=== PATIENT | female | born 1995 | race Caucasian/White ===

== ENCOUNTER 2017-02-03 12:52 | Emergency (ER) | payer OTHER ==
[~2017-02-03] VITALS: Ht 157.5 cm; Wt 52.1 kg
[~2017-02-03 12:52] MED LIST: CLEOCIN300 MG PO; GARAMYCIN5 M1 LEFT EYE; JUNEL FE 1/21 TABLET PO; KEPPRA750 MG PO; MOTRIN600 MG PO; MUCINEX DM ER1 EACH PO; NAPROSYN500 MG PO; PEPCID20 MG PO; PHENERGAN-CODE120 ML PO; PREDNISONE20 MG PO; PROAIR HFA8.5 GM IH; TAMIFLU75 MG PO; TRAMADOL HCL50 MG PO; VENTOLIN HFA18 GM IH; ZOFRAN4 MG PO
[2017-02-03] MEDS ORDERED: AMOXICILLIN500 M1 PO (14:10)
[2017-02-03] MEDS ORDERED: MOTRIN600 MG PO (14:10)
[2017-02-03] MEDS ORDERED: TRAMADOL HCL50 MG PO (14:10)
[2017-02-03 14:52] VITALS: BP 144/84
== END 2017-02-03 14:56 | disposition home or self-care (01) ==
LOC: EME 12:52 → RME 12:52
DX: K08.89 Other specified disorders of teeth and supporting structures (principal)
CPT/HCPCS: 99281; 99284; J1885

== ENCOUNTER 2017-03-08 13:08 | Emergency (ER) | payer OTHER ==
[~2017-03-08] VITALS: Ht 157.5 cm; Wt 51.7 kg
[~2017-03-08 13:08] MED LIST changes: +AMOXICILLIN500 M1 PO
[2017-03-08 15:33] LABS: ADD MIUA? YES; BILIRUBIN NEGATIVE; BLOOD SMALL; COLOR YELLOW ((YELLOW)); GLUCOSE (STRIP) NEGATIVE; KETONES 5; LEUKOCYTES MODERATE; NITRITE POSITIVE; PROTEIN (STRIP) NEGATIVE; SPECIFIC GRAVITY 1.024 (1.000-1.030); UROBILINOGEN 0.2 MG/DL (0.2-1.0)
[2017-03-08 15:39] LABS: BACTERIA 3+ /HPF; EPITHELIAL CELLS RARE /HPF; MUCUS 1+ /LPF; RED BLOOD CELLS 0-5 /HPF (0-5); WHITE BLOOD CELLS 20-30 /HPF (0-5)
[2017-03-08 15:47] LABS: HEMATOCRIT 39.7 % (36.0-46.0); MCH 28.1 PG (29.0-34.0); MCV 85.2 FL (83-99); MEAN PLAT.VOLUME 10.2 uM^3 (9.5-12.4); PLATELET COUNT 352 K/uL (156-360); RBC DIS.WIDTH-CV 13.5 % (11.8-14.6); RBC DIS.WIDTH-SD 42.1 % (39-53); RED BLOOD COUNT 4.66 M/uL (3.80-5.20); WHITE BLOOD COUNT 11.3 K/uL (4.1-10.2)
[2017-03-08 15:57] LABS: CHLORIDE 101 mEq/L (99-109); POTASSIUM 3.7 mEq/L (3.7-5.4); SODIUM 137 mEq/L (136-147)
[2017-03-08 15:59] LABS: GLUCOSE 86 mg/dL (70-99)
[2017-03-08 16:01] LABS: ANION GAP 10 MEQ/L (2-14); TOTAL BILIRUBIN 0.4 mg/dL (0.0-1.0)
[2017-03-08 16:03] LABS: ALKALINE PHOSPHATASE 84 IU/L (3-129); GFR ESTIMATE (CALCULATED) > 59 mL/min/
[2017-03-08 16:04] LABS: UREA NITROGEN (BUN) 7 mg/dL (9-23)
[2017-03-08 16:07] LABS: LIPASE 19 U/L (1.0-51.0)
[2017-03-08 16:14] LABS: QUANTITATIVE HCG < 4.0 MIU/ML
[2017-03-08] MEDS ORDERED: ZOFRAN ODT4 MG PO (16:43)
[2017-03-08] MEDS ORDERED: MACROBID100 MG PO (16:43)
[2017-03-08 17:00] VITALS: BP 120/84
== END 2017-03-08 17:02 | disposition home or self-care (01) ==
LOC: EXP 13:08 → EME 13:08 → EXP 17:02
PROVIDERS: Nurse Practitioner Family
DX: J06.9 Acute upper respiratory infection, unspecified (principal); N39.0 Urinary tract infection, site not specified; J45.909 Unspecified asthma, uncomplicated; Z32.02 Encounter for pregnancy test, result negative
CPT/HCPCS: 80053; 81003; 83690; 84702; 85027; 87651 90; 99281; 99284

== ENCOUNTER 2017-05-08 11:33 | Emergency (ER) | payer OTHER ==
[~2017-05-08] VITALS: Ht 157.5 cm; Wt 54.1 kg
[~2017-05-08 11:33] MED LIST changes: +MACROBID100 MG PO; +ZOFRAN ODT4 MG PO
[2017-05-08 15:03] LABS: BASOPHIL COUNT 0.1 K/uL (0-0.1); EOSINOPHIL (%) 0.5 % (0-5); EOSINOPHIL COUNT 0.1 K/uL (0-0.3); HEMATOCRIT 42.7 % (36.0-46.0); IMMATURE GRANULOCYTE (%) 0.4 % (0.0-0.7); IMMATURE GRANULOCYTE COUNT 0.1 K/uL; INSTRUMENT ABS NEUTROPHIL CT 8.6 K/uL; LYMPHOCYTE COUNT 1.9 K/uL (1.0-2.8); MCH 28.1 PG (29.0-34.0); MCHC 32.6 G/DL (30.0-36.0); MCV 86.3 FL (83-99); MONOCYTE (%) 8.3 % (3-12); NEUTROPHIL (%) 74.3 % (45-76); NEUTROPHIL COUNT 8.6 K/uL (1.8-6.4); RBC DIS.WIDTH-CV 13.1 % (11.8-14.6); RBC DIS.WIDTH-SD 40.8 % (39-53); RED BLOOD COUNT 4.95 M/uL (3.80-5.20); WHITE BLOOD COUNT 11.6 K/uL (4.1-10.2)
[2017-05-08 15:04] LABS: CHLORIDE 103 mEq/L (99-109); POTASSIUM 3.9 mEq/L (3.7-5.4); SODIUM 135 mEq/L (136-147)
[2017-05-08 15:06] LABS: GLUCOSE 82 mg/dL (70-99)
[2017-05-08 15:08] LABS: ANION GAP 12 MEQ/L (2-14); TOTAL BILIRUBIN 0.6 mg/dL (0.0-1.0)
[2017-05-08 15:10] LABS: ALKALINE PHOSPHATASE 79 IU/L (3-129); GFR ESTIMATE (CALCULATED) > 59 mL/min/
[2017-05-08 15:11] LABS: UREA NITROGEN (BUN) 7 mg/dL (9-23)
[2017-05-08 15:45] LABS: MEAN PLAT.VOLUME 10.3 uM^3 (9.5-12.4); PLAT.SUFFICIENCY ADEQUATE; PLATELET COUNT 317 K/uL (156-360)
[2017-05-08] MEDS ORDERED: LORTAB 5-325 M1 EACH PO (17:03)
[2017-05-08] MEDS ORDERED: CLEOCIN300 MG PO (17:03)
[2017-05-08 17:30] VITALS: BP 104/67
== END 2017-05-08 17:30 | disposition home or self-care (01) ==
LOC: EME 11:33
PROVIDERS: Emergency Medicine
DX: L03.211 Cellulitis of face (principal); K08.89 Other specified disorders of teeth and supporting structures; J45.909 Unspecified asthma, uncomplicated; Z88.1 Allergy status to other antibiotic agents
CPT/HCPCS: 70491; 80053; 83605; 85025; 99281; 99285; J1885

== ENCOUNTER 2017-06-03 21:32 | Emergency (ER) | payer OTHER ==
[~2017-06-03] VITALS: Ht 157.5 cm; Wt 55.1 kg
[~2017-06-03 21:32] MED LIST changes: +LORTAB 5-325 M1 EACH PO
[2017-06-04 00:25] LABS: ADD MIUA? YES; BILIRUBIN NEGATIVE; BLOOD NEGATIVE; COLOR YELLOW ((YELLOW)); GLUCOSE (STRIP) NEGATIVE; KETONES NEGATIVE; LEUKOCYTES NEGATIVE; NITRITE NEGATIVE; PROTEIN (STRIP) NEGATIVE; SPECIFIC GRAVITY 1.023 (1.000-1.030)
[2017-06-04 00:27] LABS: INTERNAL CONTROL VALID? YES
[2017-06-04 00:29] LABS: BACTERIA NONE SEEN /HPF; EPITHELIAL CELLS RARE /HPF; MUCUS TRACE /LPF; RED BLOOD CELLS 0-5 /HPF (0-5); UCUL ADDED? NO; WHITE BLOOD CELLS 0-5 /HPF (0-5)
[2017-06-04 01:08] VITALS: BP 131/71
== END 2017-06-04 01:09 | disposition home or self-care (01) ==
LOC: EME 21:32 → EXP 21:32
PROVIDERS: Physician Assistant
DX: O26.891 Other specified pregnancy related conditions, first trimester (principal); J06.9 Acute upper respiratory infection, unspecified; Z3A.00 Weeks of gestation of pregnancy not specified; O99.511 Diseases of the respiratory system complicating pregnancy, first trimester; J45.909 Unspecified asthma, uncomplicated; O99.341 Other mental disorders complicating pregnancy, first trimester; F31.9 Bipolar disorder, unspecified; Z88.1 Allergy status to other antibiotic agents
CPT/HCPCS: 81003; 84703; 99281; 99283

== ENCOUNTER 2017-07-21 14:38 | Emergency (ER) | payer OTHER ==
[~2017-07-21] VITALS: Ht 157.5 cm; Wt 37.2 kg
[2017-07-21 15:45] LABS: BASOPHIL (%) 0.4 % (0-1); BASOPHIL COUNT 0.1 K/uL (0-0.1); EOSINOPHIL (%) 0.2 % (0-5); HEMATOCRIT 44.1 % (36.0-46.0); HEMOGLOBIN 14.8 G/DL (11.9-15.5); IMMATURE GRANULOCYTE (%) 0.5 % (0.0-0.7); LYMPHOCYTE (%) 5.8 % (15-42); MCH 29.4 PG (29.0-34.0); MCHC 33.6 G/DL (30.0-36.0); MCV 87.5 FL (83-99); MONOCYTE (%) 4.7 % (3-12); MONOCYTE COUNT 0.8 K/uL (0-0.8); NEUTROPHIL (%) 88.4 % (45-76); NEUTROPHIL COUNT 14.6 K/uL (1.8-6.4); RBC DIS.WIDTH-CV 13.9 % (11.8-14.6); RBC DIS.WIDTH-SD 44.8 % (39-53); RED BLOOD COUNT 5.04 M/uL (3.80-5.20); WHITE BLOOD COUNT 16.5 K/uL (4.1-10.2)
[2017-07-21 15:57] LABS: CHLORIDE 107 mEq/L (99-109); POTASSIUM 4.4 mEq/L (3.7-5.4); SODIUM 139 mEq/L (136-147)
[2017-07-21 15:59] LABS: GLUCOSE 100 mg/dL (70-99)
[2017-07-21 16:02] LABS: CREATININE 0.7 mg/dL (0.6-1.3); GFR ESTIMATE (CALCULATED) > 59 mL/min/
[2017-07-21 16:03] LABS: UREA NITROGEN (BUN) 10 mg/dL (9-23)
[2017-07-21 16:12] LABS: QUANTITATIVE HCG 5054.3 MIU/ML
[2017-07-21 16:41] LABS: PLAT.SUFFICIENCY ADEQUATE; PLATELET COUNT 214 K/uL (156-360)
[2017-07-21 18:55] VITALS: BP 111/72
== END 2017-07-21 19:04 | disposition home or self-care (01) ==
LOC: EME 14:38
PROVIDERS: Emergency Medicine
DX: O03.9 Complete or unspecified spontaneous abortion without complication (principal); J45.909 Unspecified asthma, uncomplicated; R56.9 Unspecified convulsions
CPT/HCPCS: 76801; 80048; 84702; 85025; 86900; 86901; 99281; 99284

== ENCOUNTER 2017-07-29 19:10 | Emergency (ER) | payer OTHER ==
[~2017-07-29] VITALS: Ht 157.5 cm; Wt 54.0 kg
[2017-07-29 23:38] LABS: HEMATOCRIT 40.7 % (36.0-46.0); HEMOGLOBIN 13.7 G/DL (11.9-15.5); MCH 29.1 PG (29.0-34.0); MCHC 33.7 G/DL (30.0-36.0); MCV 86.6 FL (83-99); RBC DIS.WIDTH-CV 13.3 % (11.8-14.6); RBC DIS.WIDTH-SD 42.7 % (39-53); WHITE BLOOD COUNT 7.5 K/uL (4.1-10.2)
[2017-07-29 23:42] LABS: PLATELET COUNT 303 K/uL (156-360)
[2017-07-29 23:49] LABS: CHLORIDE 107 mEq/L (99-109); POTASSIUM 3.5 mEq/L (3.7-5.4); SODIUM 137 mEq/L (136-147)
[2017-07-29 23:50] LABS: GLUCOSE 90 mg/dL (70-99)
[2017-07-29 23:54] LABS: CREATININE 0.7 mg/dL (0.6-1.3); GFR ESTIMATE (CALCULATED) > 59 mL/min/
[2017-07-29 23:55] LABS: UREA NITROGEN (BUN) 5 mg/dL (9-23)
[2017-07-30] MEDS ORDERED: CLEOCIN150 MG PO (02:28)
[2017-07-30 02:47] VITALS: BP 122/78
== END 2017-07-30 02:50 | disposition home or self-care (01) ==
LOC: EME 19:10
PROVIDERS: Physician Assistant Medical
DX: K61.1 Rectal abscess (principal)
CPT/HCPCS: 74177; 80048; 85027; 87070; 87075; 87076; 87077; 87185; 87205; 99281; 99285; J7030

== ENCOUNTER 2017-08-21 21:22 | Emergency (ER) | payer OTHER ==
[~2017-08-21] VITALS: Ht 157.5 cm; Wt 57.8 kg
[~2017-08-21 21:22] MED LIST changes: +CLEOCIN150 MG PO
[2017-08-21 23:01] VITALS: BP 152/81
== END 2017-08-21 23:01 | disposition home or self-care (01) ==
LOC: EME 21:22
PROVIDERS: Physician Assistant
DX: S60.414A Abrasion of right ring finger, initial encounter (principal); W25.XXXA Contact with sharp glass, initial encounter; Y93.89 Activity, other specified; Z88.1 Allergy status to other antibiotic agents
CPT/HCPCS: 73140; 81025; 99281; 99283

== ENCOUNTER 2017-12-05 15:58 | Emergency (ER) | payer OTHER ==
[~2017-12-05] VITALS: Ht 157.5 cm; Wt 87.7 kg
[2017-12-05 17:22] LABS: BASOPHIL (%) 0.8 % (0-1); BASOPHIL COUNT 0.1 K/uL (0-0.1); EOSINOPHIL (%) 2.2 % (0-5); EOSINOPHIL COUNT 0.2 K/uL (0-0.3); HEMATOCRIT 37.5 % (36.0-46.0); HEMOGLOBIN 12.5 G/DL (11.9-15.5); IMMATURE GRANULOCYTE (%) 0.5 % (0.0-0.7); LYMPHOCYTE (%) 20.4 % (15-42); LYMPHOCYTE COUNT 1.8 K/uL (1.0-2.8); MCH 28.9 PG (29.0-34.0); MCHC 33.3 G/DL (30.0-36.0); MCV 86.8 FL (83-99); MONOCYTE (%) 8.7 % (3-12); MONOCYTE COUNT 0.8 K/uL (0-0.8); NEUTROPHIL (%) 67.4 % (45-76); NEUTROPHIL COUNT 5.8 K/uL (1.8-6.4); PLATELET COUNT 306 K/uL (156-360); RBC DIS.WIDTH-CV 12.3 % (11.8-14.6); RBC DIS.WIDTH-SD 39.3 % (39-53); RED BLOOD COUNT 4.32 M/uL (3.80-5.20); WHITE BLOOD COUNT 8.7 K/uL (4.1-10.2)
[2017-12-05 17:31] LABS: CHLORIDE 107 mEq/L (99-109); POTASSIUM 3.9 mEq/L (3.7-5.4); SODIUM 138 mEq/L (136-147)
[2017-12-05 17:32] LABS: GLUCOSE 95 mg/dL (70-99)
[2017-12-05 17:36] LABS: CREATININE 0.7 mg/dL (0.6-1.3); GFR ESTIMATE (CALCULATED) > 59 mL/min/
[2017-12-05 17:37] LABS: UREA NITROGEN (BUN) 9 mg/dL (9-23)
[2017-12-05 18:28] LABS: QUANTITATIVE HCG < 4.0 MIU/ML
[2017-12-05 18:43] VITALS: BP 111/67
== END 2017-12-05 18:50 | disposition home or self-care (01) ==
LOC: EME 15:58
PROVIDERS: Emergency Medicine
DX: N93.9 Abnormal uterine and vaginal bleeding, unspecified (principal); R10.30 Lower abdominal pain, unspecified; Z98.890 Other specified postprocedural states; J45.909 Unspecified asthma, uncomplicated
CPT/HCPCS: 80048; 84702; 85025; 86850; 86900; 86901; 99281; 99284

== ENCOUNTER 2018-01-14 22:15 | Emergency (ER) | payer OTHER ==
[~2018-01-14] VITALS: Ht 157.5 cm; Wt 56.6 kg
[2018-01-14] MEDS ORDERED: MOTRIN600 MG PO (23:05)
[2018-01-14 23:25] VITALS: BP 129/78
== END 2018-01-14 23:26 | disposition home or self-care (01) ==
LOC: EME 22:15
DX: S63.501A Unspecified sprain of right wrist, initial encounter (principal); W22.09XA Striking against other stationary object, initial encounter; Y92.810 Car as the place of occurrence of the external cause; J45.909 Unspecified asthma, uncomplicated; Z88.1 Allergy status to other antibiotic agents
CPT/HCPCS: 73110; 99281; 99284

== ENCOUNTER 2018-01-17 19:35 | Emergency (ER) | payer OTHER ==
[~2018-01-17] VITALS: Ht 157.5 cm; Wt 55.7 kg
[2018-01-17 20:13] LABS: HEMATOCRIT 34.9 % (36.0-46.0); HEMOGLOBIN 11.8 G/DL (11.9-15.5); MCH 28.7 PG (29.0-34.0); MCHC 33.8 G/DL (30.0-36.0); MCV 84.9 FL (83-99); PLATELET COUNT 380 K/uL (156-360); RBC DIS.WIDTH-CV 13.2 % (11.8-14.6); RBC DIS.WIDTH-SD 40.8 % (39-53); RED BLOOD COUNT 4.11 M/uL (3.80-5.20); WHITE BLOOD COUNT 16.2 K/uL (4.1-10.2)
[2018-01-17 20:22] LABS: ALBUMIN 4.3 g/dL (3.2-4.8); CHLORIDE 109 mEq/L (99-109); POTASSIUM 3.6 mEq/L (3.7-5.4); SODIUM 142 mEq/L (136-147)
[2018-01-17 20:24] LABS: GLUCOSE 100 mg/dL (70-99)
[2018-01-17 20:25] LABS: TOTAL PROTEIN 7.9 g/dL (6.4-8.3)
[2018-01-17 20:26] LABS: TOTAL BILIRUBIN 0.3 mg/dL (0.0-1.0)
[2018-01-17 20:28] LABS: ALKALINE PHOSPHATASE 71 IU/L (3-129); CREATININE 0.8 mg/dL (0.6-1.3); GFR ESTIMATE (CALCULATED) > 59 mL/min/
[2018-01-17 20:29] LABS: UREA NITROGEN (BUN) 6 mg/dL (9-23)
[2018-01-17 20:30] LABS: AST (GOT) 16 IU/L (2-34)
[2018-01-17 20:31] LABS: ALT (GPT) 12 IU/L (3-49)
[2018-01-17 20:42] LABS: QUANTITATIVE HCG < 4.0 MIU/ML
[2018-01-17 20:54] LABS: APPEARANCE CLOUDY ((CLEAR)); BILIRUBIN NEGATIVE; BLOOD LARGE; COLOR YELLOW ((YELLOW)); GLUCOSE (STRIP) NEGATIVE; KETONES NEGATIVE; LEUKOCYTES LARGE; NITRITE NEGATIVE; PROTEIN (STRIP) 100; SPECIFIC GRAVITY 1.018 (1.000-1.030); UROBILINOGEN 0.2 MG/DL (0.2-1.0)
[2018-01-17 21:30] LABS: BACTERIA RARE /HPF; EPITHELIAL CELLS 1+ /HPF; MUCUS TRACE /LPF; UCUL ADDED? YES; WHITE BLOOD CELLS TNTC /HPF (0-5)
[2018-01-17] MEDS ORDERED: BACTRIM,SEPT1 TABLET PO (22:41)
[2018-01-17] MEDS ORDERED: PYRIDIUM200 MG PO (22:41)
[2018-01-17 22:52] VITALS: BP 112/73
== END 2018-01-17 22:52 | disposition home or self-care (01) ==
LOC: EME 19:35
DX: N39.0 Urinary tract infection, site not specified (principal); Z87.440 Personal history of urinary (tract) infections; J45.909 Unspecified asthma, uncomplicated; F31.9 Bipolar disorder, unspecified; Z86.69 Personal history of other diseases of the nervous system and sense organs; Z88.8 Allergy status to other drugs, medicaments and biological substances
CPT/HCPCS: 74177; 80053; 81003; 84702; 85027; 87077; 87086; 87186; 99281; 99284; J7030